=== PATIENT | male | born 2000 | race Two or more races ===

== ENCOUNTER 2021-06-15 11:46 | Emergency (ER) | payer SELFPAY ==
[~2021-06-15] VITALS: Ht 167.6 cm; Wt 104.3 kg
[2021-06-15 11:46] VITALS: BP 122/88
[2021-06-15] MEDS ORDERED: ONDANSETRON ODT 4 MG TAB PO ONE (15:15)
[2021-06-15] MEDS ORDERED: HYDROcodone-ACET 5/325MG TAB PO ONE (15:15)
== END 2021-06-15 16:00 | disposition home or self-care (01) ==
LOC: ER 11:46
DX: S93.402A Sprain of unspecified ligament of left ankle, initial encounter (principal); Z88.0 Allergy status to penicillin; X58.XXXA Exposure to other specified factors, initial encounter; Y93.89 Activity, other specified; Y92.89 Other specified places as the place of occurrence of the external cause; Y99.8 Other external cause status
CPT/HCPCS: 73610; 99283; Q0162